=== PATIENT | male | born 1995 | race Caucasian/White ===

== ENCOUNTER 2021-11-18 11:52 | Emergency (ER) | payer OTHER ==
[~2021-11-18] VITALS: Ht 177.8 cm; Wt 79.5 kg
[2021-11-18 12:03] VITALS: TEMP 98.4
[2021-11-18 13:55] VITALS: BP 127/78; PULSE 64
[2021-11-18] MEDS ORDERED: NORCO 325 MG-51 TAB PO (13:59)
== END 2021-11-18 14:02 | disposition home or self-care (01) ==
LOC: COL.ER 11:52
DX: S16.1XXA Strain of muscle, fascia and tendon at neck level, initial encounter (principal); S09.90XA Unspecified injury of head, initial encounter; S43.491A Other sprain of right shoulder joint, initial encounter; F17.200 Nicotine dependence, unspecified, uncomplicated; W11.XXXA Fall on and from ladder, initial encounter; Y92.410 Unspecified street and highway as the place of occurrence of the external cause; Y99.0 Civilian activity done for income or pay
CPT/HCPCS: J2405; J3010